=== PATIENT | male | born 1985 | race Hispanic/Latino ===

== ENCOUNTER 2017-03-14 07:11 | Day surgery (SDC) | payer OTHER ==
[2017-03-11 12:37] VITALS: BMI 30.8
[~2017-03-14 07:11] MED LIST: FLU VACC QS2017-18 36 mo. & older 0.5 ML SYRINGE IM ONE
[2017-03-14 08:24] VITALS: BP 121/72; TEMP 97.8
[2017-03-14] MEDS ORDERED: HYDROcodone/Acetaminophen 5/325 mg Tablet ONE (09:21)
--- NOTE | 2017-03-14 10:07 | RAD ---
LUMBAR SPINE MYELOGRAM: INDICATION: Lumbar radiculopathy. PROCEDURE: After informed consent had been obtained, the patient was escorted to the interventional suite and pl aced on the procedural table. Handbag Designer imaging was performed. The patient was placed into a prone posi tion. Skin on the low back was then prepped and draped in the standard sterile fashion and topical a nd regional soft tissue anesthesia was achieved with 1% lidocaine and sodium bicarbonate. L3-4 righ t interlaminar approach was selected, and a 22 gauge needle was uneventfully advanced into the thecal sac with clear color CSF. Subsequently, 10 cc Isovue-M 200 was instilled into the thecal sac under real time fluoroscopy. Appropriate opacification of thecal sac demonstrated with imaging stored for confirmation. The needle was then removed from the patient. The patient tolerated the procedure wel l and was then transferred to CT to undergo subsequent myelogram. Reference separate report for full details. Radiation exposure data: 0.2 minutes intermittent fluoroscopy. Dose: 18.4 mGy*^m2. IMPRESSION: Technically successful lumbar myelogram as detailed above. POS: [facility]
--- NOTE | 2017-03-14 11:07 | CT ---
LUMBAR SPINE CT WITH CONTRAST CT LUMBAR MYELOGRAM: INDICATION: Low back pain and right lower extremity radiculopathy. FINDINGS: Conus medullaris is normal in size and terminates at the L1 level. Nerve roots of the cauda equina a re grossly unremarkable. There is no compression deformity or subluxation within the lumbar spine. There is slight disk space narrowing at L4-5 and L5-S1 present with mild associated end plate degener ative change. There is a small Schmorl's node posteriorly at the L5 superior end plate and there are small Schmorl's nodes incidentally imaged at the lower thoracic spine T11-12 levels. There is no hi gh-grade central canal or foraminal stenosis of the lumbar spine. Incidental note of hyperdensity of the right lower quadrant which may relate to prior appendectomy. Correlate clinically. Incidental note of metallic ornamentation overlying the pelvic soft tissues on the topogram. Degenerative cyst formation is seen about the left sacroiliac joint. Small facet susan nt osteophytes are seen bilaterally at the low lumbar spine. IMPRESSION: 1. There is no significant central canal or neural foraminal stenosis. 2. Mild degenerative changes are present as above. POS: [facility]T
== END 2017-03-14 10:15 | disposition home or self-care (01) ==
LOC: RAD 07:11 → EDSEX 07:11 → RAD 10:15
PROVIDERS: ATTEND Internal Medicine
PROC: B00B1ZZ Plain Radiography of Spinal Cord using Low Osmolar Contrast (ICD-10-PCS; principal; 2017-03-14)
DX: M51.16 Intervertebral disc disorders with radiculopathy, lumbar region (principal); M48.061 Spinal stenosis, lumbar region without neurogenic claudication; E78.2 Mixed hyperlipidemia; E66.8 Other obesity; G47.30 Sleep apnea, unspecified; Z68.30 Body mass index [BMI] 30.0-30.9, adult
CPT/HCPCS: 62304; 72132